=== PATIENT | female | born 1995 | race Caucasian/White ===

== ENCOUNTER → 2017-02-14 | Outpatient (CLI) | payer OTHER ==
[2017-02-14 12:55] LABS: HEMOGLOBIN 13.5 g/dl (12.0-16.0); MEAN CELL VOLUME 88.2 fl (81.0-99.0); MEAN CORPUSCULAR HGB 30.5 pg (27.0-31.0); MEAN CORPUSCULAR HGB CONC 34.6 g/dl (33.0-37.0); MEAN PLATELET VOLUME 9.4 fl (9.6-12.3); RED BLOOD COUNT 4.42 10*6/uL (4.10-5.10); RED CELL DISTRI WIDTH 11.5 % (0-14.5); WHITE BLOOD COUNT 5.3 10*3/uL (4.8-10.8)
[2017-02-14 13:28] LABS: CHOLESTEROL 165 mg/dL (<200); HDL CHOLESTEROL 58 mg/dl (40-60); LDL CHOLESTEROL 95 mg/dL (9-159); TRIGLYCERIDES 61 mg/dl (<150); VLDL CHOLESTEROL 12 mg/dL (6-40)
== END | disposition home or self-care (01) ==
LOC: LAB 12:16
PROVIDERS: Pediatrics
DX: Z00.01 Encounter for general adult medical examination with abnormal findings (principal); R79.89 Other specified abnormal findings of blood chemistry